=== PATIENT | female | born 1975 | race African-American/Black ===

== ENCOUNTER 2019-04-22 13:13 | Emergency (ER) | payer MEDICAID ==
[~2019-04-22] VITALS: Ht 167.6 cm; Wt 95.0 kg
[~2019-04-22 13:13] MED LIST: DIGO250T81; LEVOTHYROXINE; METO1TAB17; SULF-165
[2019-04-22 14:07] LABS: HEMOGLOBIN. 12.3 g/dL (12.0-16.0); MEAN CORPUSCULAR HEMOGLOBIN 27.5 pg (28.0-32.0); MEAN CORPUSCULAR VOLUME 82.7 fL (81.0-99.0); MEAN PLATELET VOLUME 8.9 fl (7.4-10.4); PLATELET 211 x1000/uL (130-400); RED BLOOD CELL COUNT 4.48 mill/uL (4.2-5.4); RED CELL DISTRIBUTION WIDTH 15.7 % (11.6-14.6)
[2019-04-22 14:14] LABS: CHLORIDE 108 mEq/L (98-107)
[2019-04-22] MEDS ORDERED: ASPIRIN 81MG TABLET PO ONE (14:30)
[2019-04-22 14:52] LABS: PLATELET ESTIMATE NORMAL
[2019-04-22 16:45] LABS: T4 FREE 1.22 ng/dL (0.76-1.46)
[2019-04-22 17:16] VITALS: BP 105/56
== END 2019-04-22 17:27 | disposition short-term general hospital (02) ==
LOC: ER 13:13 → CANBEDREQ 16:05 → ER 17:27
DX: R07.89 Other chest pain (principal); E03.9 Hypothyroidism, unspecified; I11.9 Hypertensive heart disease without heart failure; E87.8 Other disorders of electrolyte and fluid balance, not elsewhere classified; Z95.810 Presence of automatic (implantable) cardiac defibrillator
CPT/HCPCS: 36415; 71045; 80162; 83735; 83880; 84439; 84443; 84484; 93005; 99285

== ENCOUNTER 2019-05-22 23:29 | Emergency (ER) | payer MEDICAID ==
[~2019-05-22] VITALS: Ht 175.3 cm; Wt 91.0 kg
[2019-05-23] MEDS ORDERED: LIDOCAINE HCL 1% 20ML VIAL (Pyxis) INJ INFIL ONE (01:00)
[2019-05-23] MEDS ORDERED: AZITHROMYCIN 500 MG TABLET PO ONE (01:00)
[2019-05-23] MEDS ORDERED: CEFTRIAXONE SODIUM 250 MG/VIAL IM ONE (01:00)
[2019-05-23 01:12] LABS: CLARITY URINE TURBID (CLEAR); COLOR URINE YELLOW (YELLOW); KETONES URINE NEGATIVE (NEGATIVE); LEUKOCYTE ESTERASE URINE 3+ (NEGATIVE); NITRITE URINE NEGATIVE (NEGATIVE); OCCULT BLOOD URINE 1+ (NEGATIVE); PH URINE 5.5 (4.5-8.0); PROTEIN URINE TRACE (NEGATIVE); SPECIFIC GRAVITY URINE 1.017 (1.005-1.030); UROBILINOGEN URINE 0.2 E.U./dL (0.2-1.0)
[2019-05-23 02:03] VITALS: BP 129/72
[2019-05-25 05:52] LABS: CHLAMYDIA TRACHOMATIS NAA Negative (Negative); NEISSERIA GONORRHOEAE NAA Negative (Negative)
== END 2019-05-23 02:03 | disposition home or self-care (01) ==
LOC: ER 23:29
DX: S80.861A Insect bite (nonvenomous), right lower leg, initial encounter (principal); N39.0 Urinary tract infection, site not specified; A59.9 Trichomoniasis, unspecified; N76.0 Acute vaginitis; B96.89 Other specified bacterial agents as the cause of diseases classified elsewhere; Z95.0 Presence of cardiac pacemaker; Z86.79 Personal history of other diseases of the circulatory system; Z79.899 Other long term (current) drug therapy; W57.XXXA Bitten or stung by nonvenomous insect and other nonvenomous arthropods, initial encounter; Y93.89 Activity, other specified; Y92.89 Other specified places as the place of occurrence of the external cause; Y99.8 Other external cause status
CPT/HCPCS: 81003; 81025; 87086; 87210; 87491; 87591; 96372; 99283; J0696; J3490

== ENCOUNTER 2022-04-13 01:38 | Emergency (ER) | payer MEDICAID ==
[~2022-04-13] VITALS: Ht 175.3 cm; Wt 91.0 kg
[~2022-04-13 01:38] MED LIST changes: +DIGO250T; -DIGO250T81
[2022-04-13] MEDS ORDERED: PSEUDOEPHEDRINE HCL 30MG TABLET PO STA (03:14)
[2022-04-13] MEDS ORDERED: ACETAMINOPHEN 500MG TABLET PO ONE (03:15)
[2022-04-13] MEDS ORDERED: PSEU120T56 MT ×2 (04:33→15:11)
[2022-04-13] MEDS ORDERED: ACET-2708 MT ×2 (04:33→15:11)
[2022-04-13 04:45] VITALS: BP 115/75
== END 2022-04-13 04:45 | disposition home or self-care (01) ==
LOC: ER 01:38
DX: B34.9 Viral infection, unspecified (principal); I50.9 Heart failure, unspecified; N28.9 Disorder of kidney and ureter, unspecified; E05.90 Thyrotoxicosis, unspecified without thyrotoxic crisis or storm; Z20.822 Contact with and (suspected) exposure to COVID-19; Z95.0 Presence of cardiac pacemaker
CPT/HCPCS: 71045; 87426; 87804; 99284; C9803

== ENCOUNTER 2022-05-27 21:42 | Emergency (ER) | payer MEDICAID ==
[~2022-05-27] VITALS: Ht 175.3 cm; Wt 116.4 kg
[~2022-05-27 21:42] MED LIST changes: +ACET-2708 MT; +PSEU120T56 MT
[2022-05-27 21:47] VITALS: BP 116/72
== END 2022-05-27 22:53 | disposition left against medical advice (07) ==
LOC: ER 21:42
DX: Z53.21 Procedure and treatment not carried out due to patient leaving prior to being seen by health care provider (principal)
CPT/HCPCS: 93005

== ENCOUNTER 2022-10-29 14:17 | Emergency (ER) | payer MEDICAID ==
[~2022-10-29] VITALS: Ht 167.6 cm; Wt 120.0 kg
[2022-10-29 15:47] LABS: BASOPHILS % 0.8 % (0.0-2.0); EOSINOPHILS % 8.1 % (0.0-5.0); HEMATOCRIT. 42.4 % (36.0-48.0); LYMPHOCYTES % 25.6 % (20.0-50.0); MEAN CORPUSCULAR HEMOGLOBIN 27.7 pg (28.0-32.0); MEAN CORPUSCULAR VOLUME 84.3 fL (81.0-99.0); MEAN PLATELET VOLUME 8.3 fl (7.4-10.4); MONOCYTES % 11.7 % (2.0-8.0); NEUTROPHILS % 53.8 % (40.0-76.0); PLATELET 202 x1000/uL (130-400); RED BLOOD CELL COUNT 5.04 mill/uL (4.2-5.4); RED CELL DISTRIBUTION WIDTH 14.6 % (11.6-14.6)
[2022-10-29 16:01] LABS: CHLORIDE 109 mEq/L (98-107)
[2022-10-29 16:11] LABS: ETHANOL BLOOD < 10 mg/dL
[2022-10-29 21:38] VITALS: BP 111/78
== END 2022-10-29 22:14 | disposition short-term general hospital (02) ==
LOC: ER 14:17
DX: I47.1 Supraventricular tachycardia (principal); I50.9 Heart failure, unspecified; I42.9 Cardiomyopathy, unspecified; N28.9 Disorder of kidney and ureter, unspecified; E05.90 Thyrotoxicosis, unspecified without thyrotoxic crisis or storm; Z95.0 Presence of cardiac pacemaker; Z20.822 Contact with and (suspected) exposure to COVID-19; Z98.890 Other specified postprocedural states
CPT/HCPCS: 36415; 70450; 71045; 80053; 80320; 83880; 84484; 85025; 86850; 86900; 86901; 87426; 93005; 99285; C9803; G0480

== ENCOUNTER 2023-05-20 18:51 | Inpatient (IN) | payer MEDICAID, OTHER ==
[~2023-05-20] VITALS: Ht 172.7 cm; Wt 109.8 kg
[2023-05-20 20:08] LABS: BASOPHILS % 0.8 % (0.0-2.0); EOSINOPHILS % 2.8 % (0.0-5.0); HEMATOCRIT. 41.4 % (36.0-48.0); HEMOGLOBIN. 13.6 g/dL (12.0-16.0); LYMPHOCYTES % 39.6 % (20.0-50.0); MEAN CORPUSCULAR HEMOGLOBIN 27.5 pg (28.0-32.0); MEAN CORPUSCULAR HGB CONC 32.8 g/dL (31.0-37.0); MEAN CORPUSCULAR VOLUME 83.7 fL (81.0-99.0); MEAN PLATELET VOLUME 8.2 fl (7.4-10.4); MONOCYTES % 12.1 % (2.0-8.0); NEUTROPHILS % 44.7 % (40.0-76.0); PLATELET 239 x1000/uL (130-400); RED BLOOD CELL COUNT 4.95 mill/uL (4.2-5.4); RED CELL DISTRIBUTION WIDTH 13.6 % (11.6-14.6)
[2023-05-20 20:14] LABS: CHLORIDE 107 mEq/L (98-107); INDEX HEMOLYSI 1 (1-3); INDEX ICTERIC 1 (1-4); INDEX LIPEMIC 1 (1-3); SODIUM 139 mEq/L (136-145)
[2023-05-20 20:22] LABS: ALANINE AMINOTRANSFERASE 24 IU/L (13-61); ALBUMIN 3.7 g/dL (3.4-5.0); ASPARTATE AMINOTRANSFERASE 14 IU/L (15-37); BILIRUBIN TOTAL 0.3 mg/dL (0.1-1.0); CALCIUM 9.6 mg/dL (8.5-10.1); CARBON DIOXIDE 27 mEq/L (21-32); CREATININE 1.4 mg/dL (0.6-1.3); GLUCOSE 91 mg/dL (70-105); PROTEIN TOTAL 8.4 g/dL (6.0-8.3); UREA NITROGEN BLOOD 20 mg/dL (7-21)
[2023-05-20] MEDS ORDERED: ASPIRIN 81MG TABLET PO ONE (22:45)
[2023-05-20 22:54] LABS: NT PRO B-TYPE NATRIURETIC PEP 292 pg/mL (5-125)
[2023-05-20 23:00] LABS: TROPONIN I HIGH SENSITIVITY 71 ng/L (<54)
[2023-05-21 01:56] LABS: TROPONIN I HIGH SENSITIVITY 65 ng/L (<54)
[2023-05-21] MEDS ORDERED: CLONIDINE 0.1MG TABLET PO PRN (03:45)
[2023-05-21] MEDS ORDERED: ACETAMINOPHEN 325MG TABLET PO PRN ×2 (03:45)
[2023-05-21] MEDS ORDERED: MAGNESIUM/ALUMINUM HYDROXIDE/SIMETHICONE 30ML UDC PO PRN (03:45)
[2023-05-21] MEDS ORDERED: GUAIFENESIN 200MG/10ML SUGAR FREE UDC PO PRN (03:45)
[2023-05-21] MEDS ORDERED: IPRATROPIUM/ALBUTEROL 0.5-3(2.5)MG/3ML NEB HHN PRN (03:45)
[2023-05-21] MEDS ORDERED: ONDANSETRON HCL 4MG/2ML INJ IV PRN (03:45)
[2023-05-21 04:30] VITALS: BP 108/63; PULSE 64; RESP 16; TEMP 97.7
[2023-05-21] MEDS ORDERED: LEVO175T7 PO (05:14)
[2023-05-21] MEDS ORDERED: METO-385 PO (05:14)
[2023-05-21] MEDS ORDERED: ATOR20TA PO (05:14)
[2023-05-21] MEDS ORDERED: VIT1TABL62 PO (05:14)
[2023-05-21 08:00] VITALS: BP 99/57; PULSE 67; RESP 18; TEMP 98.1
[2023-05-21] MEDS: ATORVASTATIN CALCIUM 20MG TABLET PO SCH (09:12)
[2023-05-21 10:39] LABS: INDEX HEMOLYSI 1 (1-3)
[2023-05-21] MEDS ORDERED: DEXTROSE 50% WATER 50ML SYRINGE IV PRN (11:15)
[2023-05-21] MEDS: FAMOTIDINE 20MG/2ML VIAL IV SCH (11:54)
[2023-05-21] MEDS: BLOOD SUGAR DIAGNOSTIC STRIP TEST SCH ×3 (11:54→21:00)
[2023-05-21 12:00] VITALS: BP 99/61; PULSE 66; RESP 20; TEMP 97.4
[2023-05-21 12:36] LABS: CREATINE KINASE 105 IU/L (26-192)
[2023-05-21] MEDS: INSULIN LISPRO 100 UNITS/ML SUBCUT SCH ×3 (12:40→21:00)
[2023-05-21 13:04] LABS: CLARITY URINE CLEAR (CLEAR); COLOR URINE YELLOW (YELLOW); GLUCOSE URINE NEGATIVE (NEGATIVE); KETONES URINE NEGATIVE (NEGATIVE); LEUKOCYTE ESTERASE URINE NEGATIVE (NEGATIVE); NITRITE URINE NEGATIVE (NEGATIVE); OCCULT BLOOD URINE NEGATIVE (NEGATIVE); PH URINE 5.5 (4.5-8.0); PROTEIN URINE NEGATIVE (NEGATIVE); SPECIFIC GRAVITY URINE 1.017 (1.005-1.030); UROBILINOGEN URINE 0.2 E.U./dL (0.2-1.0)
[2023-05-21 13:27] LABS: PROTHROMBIN TIME 10.6 sec (9.6-11.0)
[2023-05-21] MEDS: LEVOTHYROXINE SODIUM 175MCG TABLET PO SCH (14:04)
[2023-05-21] MEDS: DOCUSATE SODIUM 100MG CAPSULE PO PRN (14:04)
[2023-05-21 15:28] LABS: CREATINE KINASE MB FRACTION < 1.0 ng/mL (0.5-3.6)
[2023-05-21] MEDS ORDERED: NITROGLYCERIN 0.4MG TABLET SL SL PRN (15:45)
[2023-05-21 16:00] VITALS: BP 108/56; PULSE 18; RESP 18; TEMP 97
[2023-05-21 16:19] LABS: INDEX HEMOLYSI 1 (1-3); INDEX LIPEMIC 1 (1-3)
[2023-05-21 16:33] LABS: CREATINE KINASE 98 IU/L (26-192); CREATINE KINASE MB FRACTION < 1.0 ng/mL (0.5-3.6); PHOSPHORUS 3.4 mg/dL (2.5-4.9)
[2023-05-21 16:45] LABS: TROPONIN I HIGH SENSITIVITY 59 ng/L (<54)
[2023-05-21 17:11] LABS: TROPONIN I HIGH SENSITIVITY 64 ng/L (<54)
[2023-05-21 20:00] VITALS: BP 94/47; PULSE 72; RESP 20; TEMP 96.2
[2023-05-21] MEDS: METOPROLOL TARTRATE 50MG TABLET PO SCH (21:00)
[2023-05-21 21:41] LABS: *AMPHETAMINES SCREEN URINE NEGATIVE (NEGATIVE); *BARBITURATES SCREEN URINE NEGATIVE (NEGATIVE); *BENZODIAZEPINES SCREEN URINE NEGATIVE (NEGATIVE); *COCAINE SCREEN URINE NEGATIVE (NEGATIVE); CANNABINOID URINE SCREEN NEGATIVE (NEGATIVE); ECSTASY MDMA SCREEN URINE NEGATIVE (NEGATIVE); METHADONE URINE SCREEN NEGATIVE (NEGATIVE); OPIATES URINE SCREEN NEGATIVE (NEGATIVE); PHENCYCLIDINE URINE SCREEN NEGATIVE (NEGATIVE)
[2023-05-21] MEDS: ENOXAPARIN 30MG/0.3ML SYR SUBCUT SCH (23:48)
[2023-05-22] VITALS: BP 91/58; PULSE 66; RESP 20; TEMP 96.9
[2023-05-22 04:00] VITALS: BP 92/50; PULSE 59; RESP 20; TEMP 96.9
[2023-05-22] MEDS: BLOOD SUGAR DIAGNOSTIC STRIP TEST SCH ×4 (06:59→20:58)
[2023-05-22] MEDS: LEVOTHYROXINE SODIUM 175MCG TABLET PO SCH (06:59)
[2023-05-22] MEDS: INSULIN LISPRO 100 UNITS/ML SUBCUT SCH ×4 (06:59→20:58)
[2023-05-22 07:28] LABS: HEMATOCRIT. 39.7 % (36.0-48.0); HEMOGLOBIN. 13.2 g/dL (12.0-16.0); MEAN CORPUSCULAR HEMOGLOBIN 27.6 pg (28.0-32.0); MEAN CORPUSCULAR HGB CONC 33.2 g/dL (31.0-37.0); MEAN CORPUSCULAR VOLUME 83.3 fL (81.0-99.0); MEAN PLATELET VOLUME 8.8 fl (7.4-10.4); PLATELET 206 x1000/uL (130-400); RED BLOOD CELL COUNT 4.77 mill/uL (4.2-5.4); RED CELL DISTRIBUTION WIDTH 13.3 % (11.6-14.6); WHITE BLOOD COUNT 5.8 x1000/uL (4.5-11.0)
[2023-05-22 07:38] LABS: DIFFERENTIAL COMMENT 1
[2023-05-22 08:00] VITALS: BP_SYST 111; BP_DIAS 51; BP_DIAS 72; PULSE 61; PULSE 71; RESP 20; TEMP 98; TEMP 98.1
[2023-05-22 08:16] LABS: CHLORIDE 107 mEq/L (98-107); INDEX HEMOLYSI 1 (1-3); INDEX ICTERIC 1 (1-4); INDEX LIPEMIC 1 (1-3); SODIUM 138 mEq/L (136-145)
[2023-05-22 08:31] LABS: ALANINE AMINOTRANSFERASE 20 IU/L (13-61); ASPARTATE AMINOTRANSFERASE 16 IU/L (15-37); BILIRUBIN TOTAL 0.4 mg/dL (0.1-1.0); CALCIUM 9.2 mg/dL (8.5-10.1); CARBON DIOXIDE 24 mEq/L (21-32); CHOLESTEROL 111 mg/dL (<200); HDL CHOLESTEROL 43 mg/dL (40-59); LDL CHOLESTEROL 57 mg/dL (5-100); THYROID STIMULATING HORMONE < 0.10 uIU/mL (0.36-3.74); TRIGLYCERIDE 117 mg/dL (0-150)
[2023-05-22] MEDS: METOPROLOL TARTRATE 50MG TABLET PO SCH (09:00)
[2023-05-22 09:23] LABS: CREATININE 1.3 mg/dL (0.6-1.3); GLUCOSE 83 mg/dL (70-105); UREA NITROGEN BLOOD 18 mg/dL (7-21)
[2023-05-22] MEDS: ATORVASTATIN CALCIUM 20MG TABLET PO SCH (09:26)
[2023-05-22] MEDS: ASPIRIN 81MG TABLET PO SCH (09:26)
[2023-05-22] MEDS: FAMOTIDINE 20MG/2ML VIAL IV SCH (09:26)
[2023-05-22] MEDS: ENOXAPARIN 30MG/0.3ML SYR SUBCUT SCH ×2 (09:27→20:58)
[2023-05-22] MEDS: DOCUSATE SODIUM 100MG CAPSULE PO PRN (09:27)
[2023-05-22 12:00] VITALS: BP 111/72; PULSE 71; RESP 20; TEMP 98.1
[2023-05-22] MEDS: LOSARTAN 25 MG TABLET PO SCH (13:07)
[2023-05-22 14:47] LABS: PLATELET ESTIMATE NORMAL
[2023-05-22 16:00] VITALS: BP 100/50; PULSE 69; RESP 20; TEMP 97.9
[2023-05-22 20:00] VITALS: BP 100/57; PULSE 72; RESP 23; TEMP 97.5
[2023-05-22] MEDS: CARVEDILOL 3.125 MG TABLET PO SCH (20:45)
[2023-05-23] VITALS: BP 96/46; PULSE 63; RESP 19; TEMP 97.1
[2023-05-23 04:00] VITALS: BP 97/42; PULSE 66; RESP 19; TEMP 96.2
[2023-05-23] MEDS: LEVOTHYROXINE SODIUM 175MCG TABLET PO SCH (06:27)
[2023-05-23] MEDS: BLOOD SUGAR DIAGNOSTIC STRIP TEST SCH ×2 (06:27→12:10)
[2023-05-23] MEDS: INSULIN LISPRO 100 UNITS/ML SUBCUT SCH ×2 (06:34→12:40)
[2023-05-23 08:03] LABS: HEMOGLOBIN. 13.5 g/dL (12.0-16.0); MEAN CORPUSCULAR HEMOGLOBIN 27.3 pg (28.0-32.0); MEAN CORPUSCULAR HGB CONC 32.9 g/dL (31.0-37.0); MEAN CORPUSCULAR VOLUME 83.1 fL (81.0-99.0); PLATELET 213 x1000/uL (130-400); RED BLOOD CELL COUNT 4.93 mill/uL (4.2-5.4); RED CELL DISTRIBUTION WIDTH 13.3 % (11.6-14.6); WHITE BLOOD COUNT 5.1 x1000/uL (4.5-11.0)
[2023-05-23 08:07] VITALS: BP 103/64; PULSE 78; RESP 20; TEMP 98.1
[2023-05-23 08:17] LABS: DIFFERENTIAL COMMENT 1
[2023-05-23 08:26] LABS: CALCIUM 9.4 mg/dL (8.5-10.1); CREATININE 1.3 mg/dL (0.6-1.3)
[2023-05-23] MEDS: FAMOTIDINE 20MG/2ML VIAL IV SCH (08:43)
[2023-05-23] MEDS: CARVEDILOL 3.125 MG TABLET PO SCH (09:00)
[2023-05-23] MEDS: LOSARTAN 25 MG TABLET PO SCH (09:00)
[2023-05-23] MEDS: FUROSEMIDE 20MG TABLET PO SCH ×2 (09:00→10:39)
[2023-05-23 10:25] VITALS: BP 98/63; PULSE 81
[2023-05-23] MEDS: ATORVASTATIN CALCIUM 20MG TABLET PO SCH (10:39)
[2023-05-23] MEDS: ENOXAPARIN 30MG/0.3ML SYR SUBCUT SCH (10:39)
[2023-05-23] MEDS: ASPIRIN 81MG TABLET PO SCH (10:39)
[2023-05-23] MEDS ORDERED: LEVO125T8 MT (13:30)
[2023-05-23 13:35] VITALS: BP 111/55; PULSE 63; TEMP 98.3; O2SAT 100
[2023-05-23] MEDS ORDERED: MAGNESIUM GLUCONATE 500MG TABLET PO NR (14:00)
[2023-05-23 14:43] LABS: PLATELET ESTIMATE NORMAL
== END 2023-05-23 17:00 | disposition home or self-care (01) | DRG 201 ==
LOC: ER 18:51 → MICUSO 22:45 → EDBEDREQ 22:51 → EDBEDREQTM 22:51 → 8WST 05-21 04:23
PROVIDERS: ADMIT Internal Medicine; ATTEND Internal Medicine
DX: I48.4 Atypical atrial flutter (principal); I49.01 Ventricular fibrillation; R57.9 Shock, unspecified; N17.9 Acute kidney failure, unspecified; I50.22 Chronic systolic (congestive) heart failure; J18.9 Pneumonia, unspecified organism; I25.2 Old myocardial infarction; E03.9 Hypothyroidism, unspecified; E78.5 Hyperlipidemia, unspecified; E83.42 Hypomagnesemia; E86.0 Dehydration; N18.9 Chronic kidney disease, unspecified; R07.89 Other chest pain; Z53.29 Procedure and treatment not carried out because of patient's decision for other reasons; Z79.899 Other long term (current) drug therapy; Z45.02 Encounter for adjustment and management of automatic implantable cardiac defibrillator; Z95.810 Presence of automatic (implantable) cardiac defibrillator; Z98.891 History of uterine scar from previous surgery
CPT/HCPCS: 36415; 71045; 80048; 80053; 80061; 80305; 81003; 82550; 82553; 82962; 83036; 83605; 83735; 83880; 84100; 84439; 84443; 84484; 85025; 85379; 85651; 93005; 93306; 93880; 93970; 97110; 97162; 97530; 99285; J1650; J2405; J3490

== ENCOUNTER 2023-09-20 23:42 | Emergency (ER) | payer OTHER ==
[~2023-09-20] VITALS: Ht 172.7 cm; Wt 90.7 kg
[~2023-09-20 23:42] MED LIST changes: +ATOR20TA PO; +LEVO125T8 MT; -LEVOTHYROXINE; +METO-385 PO; +VIT1TABL62 PO
[2023-09-20 23:45] VITALS: BP 123/73; PULSE 60; RESP 16; TEMP 98.6; O2SAT 100
[2023-09-21] MEDS ORDERED: LIDO700A15 TP (02:03)
[2023-09-21] MEDS ORDERED: NAPR-1176 MT (02:03)
== END 2023-09-21 02:48 | disposition home or self-care (01) ==
LOC: ER 23:42
DX: M54.2 Cervicalgia (principal); I48.91 Unspecified atrial fibrillation; I50.9 Heart failure, unspecified; E78.00 Pure hypercholesterolemia, unspecified; G43.909 Migraine, unspecified, not intractable, without status migrainosus; Z95.0 Presence of cardiac pacemaker; Z98.890 Other specified postprocedural states; Z79.899 Other long term (current) drug therapy
CPT/HCPCS: 71045; 99283

== ENCOUNTER 2024-06-01 20:27 | Emergency (ER) | payer OTHER ==
[~2024-06-01] VITALS: Ht 172.7 cm; Wt 91.0 kg
[~2024-06-01 20:27] MED LIST changes: +LIDO700A15 TP; +NAPR-1176 MT
[2024-06-01 20:28] VITALS: O2SAT 97
[2024-06-01 21:30] VITALS: BP 117/64; PULSE 70; RESP 18; TEMP 98.8; O2SAT 100
[2024-06-01] MEDS: ONDANSETRON 4MG ODT PO ONE (21:56)
[2024-06-01] MEDS: DIPHENHYDRAMINE 25MG CAPSULE PO ONE (22:00)
== END 2024-06-01 23:44 | disposition home or self-care (01) ==
LOC: ER 20:27
DX: B34.9 Viral infection, unspecified (principal); Z95.0 Presence of cardiac pacemaker; Z79.899 Other long term (current) drug therapy; Z20.822 Contact with and (suspected) exposure to COVID-19
CPT/HCPCS: 99283; 87426; Q0163; Q0162